=== PATIENT | female | born 1955 | race Hispanic/Latino ===

== ENCOUNTER 2018-01-04 07:45 | Day surgery (SDC) | payer BC ==
[~2018-01-04] VITALS: Ht 160 cm; Wt 85.6 kg
[~2018-01-04 07:45] MED LIST: ATOR20TA65 PO; BIOT300T2 PO; FOLI1TAB85 PO; GLIM4TAB3 PO; INSU3INS3 SQ; LINA5TAB PO; LOSA1TAB54 PO; PANT40TA25 PO; SODIUM CHLORIDE 0.9% 1000ML 1,000 ML IV ONE; VITAMIN C PO; VITAMIN D2 PO; VITAMIN E PO
[2018-01-04 09:21] VITALS: BP 161/76
[2018-01-04] MEDS ORDERED: BIOTIN PO (09:39)
[2018-01-04] MEDS ORDERED: TRAM50TA4 PO (09:39)
[2018-01-04] MEDS ORDERED: LORA10CA9 PO (09:39)
[2018-01-04] MEDS ORDERED: CHOL400C9 PO (09:43)
[2018-01-04] MEDS ORDERED: AMLO5TAB2 PO (09:43)
[2018-01-04] MEDS ORDERED: PROPOFOL 10 MG/ML 20ML VIAL IV ONE (10:20)
[2018-01-04] MEDS ORDERED: FENTANYL CITRATE PF 50 MCG/1 ML 2ML VIAL ONE (10:23)
[2018-01-04 10:37] VITALS: BP 78/48
== END 2018-01-04 11:15 ==
LOC: ENDO 07:45 → DAH 07:45 → ENDO 11:15
PROVIDERS: ATTEND Internal Medicine Gastroenterology
DX: Z09 Encounter for follow-up examination after completed treatment for conditions other than malignant neoplasm (principal); D12.3 Benign neoplasm of transverse colon; D12.2 Benign neoplasm of ascending colon; K62.1 Rectal polyp; Z86.010 Personal history of colon polyps; K21.9 Gastro-esophageal reflux disease without esophagitis; K58.9 Irritable bowel syndrome, unspecified; K57.30 Diverticulosis of large intestine without perforation or abscess without bleeding; E78.5 Hyperlipidemia, unspecified; D64.9 Anemia, unspecified; I12.9 Hypertensive chronic kidney disease with stage 1 through stage 4 chronic kidney disease, or unspecified chronic kidney disease; E11.22 Type 2 diabetes mellitus with diabetic chronic kidney disease; N18.9 Chronic kidney disease, unspecified; Z98.890 Other specified postprocedural states; Z79.4 Long term (current) use of insulin; Z79.84 Long term (current) use of oral hypoglycemic drugs; Z79.899 Other long term (current) drug therapy; Z68.33 Body mass index [BMI] 33.0-33.9, adult
CPT/HCPCS: 45380; 82948 ×2; 88305; A4606; J2704; J3010; J7030

== ENCOUNTER → 2018-07-25 | Outpatient (CLI) | payer BC ==
[~2018-07-25] MED LIST changes: +AMLO5TAB7 PO; -BIOT300T2 PO; +BIOTIN PO; +CHOL400C9 PO; +LORA10CA9 PO; -SODIUM CHLORIDE 0.9% 1000ML 1,000 ML IV ONE; +TRAM50TA4 PO; -VITAMIN D2 PO
== END | disposition home or self-care (01) ==
LOC: SLP 10:00
PROVIDERS: ATTEND Family Medicine
DX: G47.30 Sleep apnea, unspecified (principal); R06.83 Snoring; I10 Essential (primary) hypertension; E11.9 Type 2 diabetes mellitus without complications; E78.5 Hyperlipidemia, unspecified; K21.9 Gastro-esophageal reflux disease without esophagitis; Z79.899 Other long term (current) drug therapy
CPT/HCPCS: 95810